=== PATIENT | male | born 1995 | race Caucasian/White ===

== ENCOUNTER 2021-02-07 12:26 | Emergency (ER) | payer BC, MEDICAID ==
[~2021-02-07] VITALS: Ht 180.3 cm; Wt 61.4 kg
[~2021-02-07 12:26] MED LIST: CLA10T PO; NAPR-56 PO
[2021-02-07 12:31] VITALS: BP 129/80
[2021-02-07] MEDS ORDERED: PENI250T2 PO (12:51)
[2021-02-07] MEDS ORDERED: LIDO20SO16 PO (12:51)
[2021-02-07] MEDS ORDERED: PRED20TA PO (12:51)
== END 2021-02-07 12:59 | disposition home or self-care (01) ==
LOC: ER 12:26
DX: K04.7 Periapical abscess without sinus (principal); K08.89 Other specified disorders of teeth and supporting structures; Z79.2 Long term (current) use of antibiotics; Z79.899 Other long term (current) drug therapy
CPT/HCPCS: 99283